=== PATIENT | female | born 1950 | race Caucasian/White ===

== ENCOUNTER 2021-05-20 09:31 | Day surgery (SDC) | payer OTHER ==
[~2021-05-20] VITALS: Ht 165.1 cm; Wt 75.6 kg
[~2021-05-20 09:31] MED LIST: ASCO500 PO; ESTRTP; FISH OIL 1,2001 EAC1 PO; MAGNESIUM OXID500 MG PO; VITAMIN D325 MC3 PO; WP THYROID81.25 MG PO
== END 2021-05-20 11:57 | disposition home or self-care (01) ==
LOC: ORSCSDS 09:31
PROVIDERS: Internal Medicine Gastroenterology
PROC: 0DBH8ZX Excision of Cecum, Via Natural or Artificial Opening Endoscopic, Diagnostic (ICD-10-PCS; principal; 2021-05-20 10:45)
DX: Z12.11 Encounter for screening for malignant neoplasm of colon (principal); D12.0 Benign neoplasm of cecum; K57.30 Diverticulosis of large intestine without perforation or abscess without bleeding; K64.8 Other hemorrhoids; Z86.010 Personal history of colon polyps
CPT/HCPCS: 88305; J2704; J7120

== ENCOUNTER 2025-08-17 06:17 | Day surgery (SDC) | payer OTHER ==
[~2025-08-17] VITALS: Ht 167.6 cm; Wt 75.7 kg
[~2025-08-17 06:17] MED LIST changes: +Lidocaine 1%-Epineph 1:100000 20 ML MDV ONE; +Sodium Bicarb 8.4% 1 MEQ/ML 50 ML Vial ONE
[2025-08-17] MEDS ORDERED: CeFAZolin Sodium 2,000 MG VIAL ONE (06:35)
--- NOTE | 2025-08-17 08:08 | NUR ---
08/17/25 0808 Adan Grissom MILD SWELLING NOTED AROUND PT'S FINGERS. FINGERS NORMAL TEMPERATURE, CAPILLARY REFILL <1 SECOND. PT ADVISED TO MONITOR FOR SWELLING AND CALL DR. CHAVIRA IMMEDIATELY IF IT DOES NOT RESOLVE.
[2025-08-17 08:12] VITALS: BP 127/79
== END 2025-08-17 08:05 | disposition home or self-care (01) ==
LOC: ORSCSDS 06:17
PROVIDERS: Orthopaedic Surgery
PROC: 01N54ZZ Release Median Nerve, Percutaneous Endoscopic Approach (ICD-10-PCS; principal; 2025-08-17 07:30)
PROC: 0JBG0ZX Excision of Right Lower Arm Subcutaneous Tissue and Fascia, Open Approach, Diagnostic (ICD-10-PCS; principal; 2025-08-17 07:30)
DX: G56.03 Carpal tunnel syndrome, bilateral upper limbs (principal); E03.9 Hypothyroidism, unspecified; E78.5 Hyperlipidemia, unspecified; Z79.899 Other long term (current) drug therapy
CPT/HCPCS: 88304; 88313; J0690; J7120

== ENCOUNTER → 2025-09-25 | Outpatient (CLI) | payer OTHER ==
[~2025-09-25] MED LIST changes: -Lidocaine 1%-Epineph 1:100000 20 ML MDV ONE; -Sodium Bicarb 8.4% 1 MEQ/ML 50 ML Vial ONE
[2025-09-25 18:04] LABS: C DIFFICILE DNA NEGATIVE (Negative)
== END | disposition home or self-care (01) ==
LOC: LAB SHORT 15:33 → LAB 15:33
PROVIDERS: Nurse Practitioner Family
DX: R19.5 Other fecal abnormalities (principal)
CPT/HCPCS: 87338; 87493